=== PATIENT | female | born 1985 | race Caucasian/White ===

== ENCOUNTER 2024-07-16 06:02 | Observation (INO) ==
[2024-07-16] MEDS: Lactated Ringers 1000 ml BAG 1,000 ML IV ONE (06:36)
[2024-07-16] MEDS: Ondansetron 4 mg VIAL 2 MG/ML 2 ml VIAL IV ONE (06:38)
[2024-07-16 06:58] LABS: ABS Basophils 0.1 10^3/uL (0.0-0.1); ABS Eosinophils 0.3 10^3/uL (0.0-0.5); ABS Monocytes 0.6 10^3/uL (0.0-0.9); ABS Neutrophils 6.7 10^3/uL (1.5-7.6); Eosinophil % 2.7 %; Hematocrit 39.6 % (35-45); Hemoglobin 13.6 g/dL (11.5-14.3); Lymphocyte % 28.1 %; Mean Corpuscular Hemoglobin 27.3 pg (27-33); Mean Corpuscular Hgb Conc 34.3 g/dL (31-36); Mean Corpuscular Volume 79.6 fL (80-97); Platelet Count 303 10^3/uL (150-450); Red Blood Count 4.98 10^6/uL (3.63-4.92); Red Cell Distribution Width 14.3 % (12-17); White Blood Count 10.7 10^3/uL (3.8-11.8)
[2024-07-16 07:38] LABS: ALT 55 U/L (7-52); AST 43 U/L (13-39); Albumin 4.1 g/dL (3.2-5.2); Albumin/Globulin Ratio 1.6 (1-3); Alkaline Phosphatase 68 U/L (35-149); Anion Gap 11 mmol/L (2-16); Blood Urea Nitrogen 13 mg/dL (6-24); CO2 Carbon Dioxide 24 mmol/L (22-32); Calcium 8.9 mg/dL (8.6-10.3); Chloride 102 mmol/L (101-111); Creatinine, Serum 0.75 mg/dL (0.51-0.95); Globulin 2.6 g/dL (2-4); Glucose 152 mg/dL (70-100); Lipase 16 U/L (11.0-82.0); Potassium 4.3 mmol/L (3.5-5.0); Sodium 137 mmol/L (135-145); Total Bilirubin 0.8 mg/dL (0.2-1.0); Total Protein 6.7 g/dL (6.4-8.9); eGFR CKD-EPI 104.4 (>60)
[2024-07-16 07:43] LABS: HCG Pregnancy < 0.60 mIU/mL
[2024-07-16] MEDS: Metoclopramide 5 MG/ML VIAL (10 mg) IV SLOW PU ONE (07:56)
[2024-07-16] MEDS ORDERED: Naloxone 0.4 mg VIAL 0.4 mg/ml 1 ml VIAL IV PRN (08:35)
[2024-07-16] MEDS ORDERED: HYDROmorphone 1 MG/1 ML SYRINGE IV PRN (08:35)
[2024-07-16] MEDS ORDERED: Dexamethasone IV 4 MG/ML VIAL 1 ml VIAL ONE (08:47)
[2024-07-16] MEDS ORDERED: Ondansetron 4 mg VIAL 2 MG/ML 2 ml VIAL ONE ×2 (08:47→11:42)
[2024-07-16] MEDS ORDERED: Midazolam 2 mg/2 ml VIAL 1 mg/ml 2 ml VIAL (2 mg) ONE (08:47)
[2024-07-16] MEDS ORDERED: Rocuronium 50 mg VIAL 10 mg/ml 5 ml VIAL (50 mg) ONE ×3 (08:47→10:25)
[2024-07-16] MEDS ORDERED: fentaNYL 250 mcg/5 ml 50 MCG/ML 5 ml VIAL (250 MCG) ONE (08:47)
[2024-07-16] MEDS ORDERED: Propofol 10 MG/ML 20 ML BTL ONE (08:47)
[2024-07-16] MEDS ORDERED: Lidocaine 2% PF 5 ML VIAL ONE (08:47)
[2024-07-16] MEDS ORDERED: Bupivacaine 0.25% SDV 30 ML ONE (08:54)
[2024-07-16] MEDS ORDERED: HYDROmorphone 0.5 MG/0.5 ML SYRINGE ONE ×2 (09:46→10:59)
[2024-07-16] MEDS ORDERED: fentaNYL 100 mcg/2 ml 50 MCG/ML VIAL ONE ×2 (09:47→12:05)
[2024-07-16] MEDS ORDERED: Morphine 2 MG/ML SYRINGE IV PRN (11:41)
[2024-07-16] MEDS: Ondansetron 4 mg VIAL 2 MG/ML 2 ml VIAL IV PRN (11:42)
[2024-07-16] MEDS ORDERED: Ondansetron 4 mg VIAL 2 MG/ML 2 ml VIAL IV PRN (11:43)
[2024-07-16] MEDS ORDERED: Acetaminophen IV 1 GM/100ML 1,000 MG/100 ML BAG IV ONE (11:43)
[2024-07-16] MEDS: Acetaminophen IV 1 GM/100ML 1,000 MG/100 ML BAG IV ONE (11:44)
[2024-07-16] MEDS: fentaNYL 100 mcg/2 ml 50 MCG/ML VIAL IV PRN (12:12)
[2024-07-16] MEDS: Buffered Lidocaine 1% SYRIN 1 ml INTRADERM ONE (15:04)
[2024-07-16] MEDS: Scopolamine 1 mg/72hr PATCH TRANSDERM ONE (15:04)
[2024-07-16] MEDS: Lactated Ringers 1000 ml BAG 1,000 ML IV SCH (15:04)
[2024-07-16] MEDS: Enoxaparin 40 MG/0.4 ML SYR SUBCUT SCH (20:00)
[2024-07-17] MEDS ORDERED: Lisinopril/HCTZ 10/12.5 TA(NF) PO SCH (11:00)
== END 2024-07-17 15:50 | disposition home or self-care (01) ==
LOC: ED 06:02 → SSU 08:44 → OR 08:44
PROVIDERS: ADMIT Surgery; ATTEND Surgery